=== PATIENT | female | born 2000 | race Caucasian/White ===

== ENCOUNTER 2024-02-14 12:52 | Emergency (ER) | payer BC, OTHER ==
[2024-02-14] MEDS ORDERED: Lidocaine 4% Patch ONE (14:07)
[2024-02-14] MEDS ORDERED: Acetaminophen 500 MG TAB ONE (14:07)
== END 2024-02-14 14:25 | disposition home or self-care (01) ==
LOC: CSHERS 12:52
DX: S13.9XXA Sprain of joints and ligaments of unspecified parts of neck, initial encounter (principal); V43.53XA Car driver injured in collision with pick-up truck in traffic accident, initial encounter
CPT/HCPCS: 99283